=== PATIENT | male | born 1980 | race Caucasian/White ===

== ENCOUNTER 2016-09-04 11:52 | Emergency (ER) | payer MEDICARE, MEDICAID ==
[~2016-09-04] VITALS: Ht 182.9 cm; Wt 104.3 kg
[2016-09-04 12:25] VITALS: BP 140/94
[2016-09-04] MEDS ORDERED: KETOROLAC TROMETH 60MG/2ML VIAL IM ONE (14:00)
[2016-09-04] MEDS ORDERED: DIAZEPAM 5 MG TAB PO ONE (14:00)
== END 2016-09-04 14:30 | disposition home or self-care (01) ==
LOC: ER 12:00
DX: G89.29 Other chronic pain (principal); M54.5 Low back pain; M51.34 Other intervertebral disc degeneration, thoracic region; F17.210 Nicotine dependence, cigarettes, uncomplicated; F12.10 Cannabis abuse, uncomplicated; Z88.2 Allergy status to sulfonamides
CPT/HCPCS: 72100; 96372; 99284; J1885

== ENCOUNTER 2016-12-23 12:43 | Emergency (ER) | payer MEDICARE, MEDICAID ==
[~2016-12-23] VITALS: Ht 185.4 cm; Wt 103.4 kg
[2016-12-23 12:50] VITALS: BP 144/95
[2016-12-23] MEDS ORDERED: KETOROLAC TROMETH 60MG/2ML VIAL IM ONE (14:00)
== END 2016-12-23 14:19 | disposition home or self-care (01) ==
LOC: ER 12:48
DX: S30.0XXA Contusion of lower back and pelvis, initial encounter (principal); F17.210 Nicotine dependence, cigarettes, uncomplicated; F12.10 Cannabis abuse, uncomplicated; Z88.2 Allergy status to sulfonamides; W01.0XXA Fall on same level from slipping, tripping and stumbling without subsequent striking against object, initial encounter; Y93.89 Activity, other specified; Y99.8 Other external cause status; Y92.89 Other specified places as the place of occurrence of the external cause
CPT/HCPCS: 72100; 96372; 99284; J1885